=== PATIENT | female | born 1960 | race Caucasian/White ===

== ENCOUNTER 2018-08-11 01:24 | Emergency (ER) | payer OTHER ==
[2018-08-11] MEDS ORDERED: FLUORESCEIN SODIUM 0.6 MG/WRAP ONE (02:08)
[2018-08-11] MEDS ORDERED: VALACYCLOVIR 500 MG TAB ONE (02:17)
[2018-08-11] MEDS ORDERED: TETRACAINE HCL 0.5% 2ML OPTH ONE (02:18)
--- NOTE | 2018-08-11 02:33 | EDPHYS ---
Physician Documentation [facility] Name: Audra Ortiz Age: 57 yrs Sex: Female : 1960 Arrival Date: 08/11/2018 Time: 01:26 Bed 14 Private MD: ED Physician Cameron Ortega HPI: 08/11 02:01 This 57 yrs old Female presents to ER via Ambulatory with complaints of pm1 Facial problem/rash. 02:01 The patient's rash thought to be caused by an unknown cause. The rash is located on the pm1 forehead. The rash can be described as raised. Onset: The symptoms/episode began/occurred 3 day(s) ago. Associated signs and symptoms: Pertinent positives: burning sensation, itching, Pain Pertinent negatives: swelling of lips, swelling of throat, swelling of tongue. Treatment given at home: OTC lotion/cream steroid lotion/cream, antifungal OTC. The patient has not experienced similar symptoms in the past. The patient has not recently seen a physician. 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 - Social history:: Smoking status: Patient/guardian denies using tobacco, never smoked. - Ebola Screening: : No symptoms or risks identified at this time. ROS: 02:01 Constitutional: Negative for fever, chills, and weight loss, Eyes: Negative for injury, pm1 pain, redness, and discharge, ENT: Negative for injury, pain, and discharge, Neck: Negative for injury, pain, and swelling, Cardiovascular: Negative for chest pain, palpitations, and edema, Respiratory: Negative for shortness of breath, cough, wheezing, and pleuritic chest pain, Abdomen/GI: Negative for abdominal pain, nausea, vomiting, diarrhea, and constipation, Back: Negative for injury and pain, MS/Extremity: Negative for injury and deformity. 02:01 Neuro: Negative for headache, weakness, numbness, tingling, and seizure. 02:01 Skin: Positive for rash, of the left side of forehead. Exam: 02:01 Constitutional: This is a well developed, well nourished patient who is awake, alert, pm1 and in no acute distress. Head/Face: Normocephalic, atraumatic. Eyes: Pupils equal round and reactive to light, extra-ocular motions intact. Lids and lashes normal. Conjunctiva and sclera are non-icteric and not injected. Cornea within normal limits. Periorbital areas with no swelling, redness, or edema. ENT: Nares patent. No nasal discharge, no septal abnormalities noted. Tympanic membranes are normal and external auditory canals are clear. Oropharynx with no redness, swelling, or masses, exudates, or evidence of obstruction, uvula midline. Mucous membranes moist. Neck: Trachea midline, no thyromegaly or masses palpated, and no cervical lymphadenopathy. Supple, full range of motion without nuchal rigidity, or vertebral point tenderness. No Meningismus. Chest/axilla: Normal chest wall appearance and motion. Nontender with no deformity. No lesions are appreciated. Cardiovascular: Regular rate and rhythm with a normal S1 and S2. No gallops, murmurs, or rubs. Normal PMI, no JVD. No pulse deficits. Respiratory: Lungs have equal breath sounds bilaterally, clear to auscultation and percussion. No rales, rhonchi or wheezes noted. No increased work of breathing, no retractions or nasal flaring. Abdomen/GI: Soft, non-tender, with normal bowel sounds. No distension or tympany. No guarding or rebound. No evidence of tenderness throughout. Back: No spinal tenderness. No costovertebral tenderness. Full range of motion. 02:01 Skin: Appearance: normal except for affected area, consistent with zoster, on the forehead left side. 02:31 Eyes: Corneas: foreign body, is not appreciated, a fluorescein strip employed to pm1 appreciate the findings, No dye uptake present on right eye. No dendrites present on right eye. Vital Signs: 01:30 BP 170 / 91; Pulse 89; Resp 19 S; Temp 98.4(O); Pulse Ox 95% on R/A; Weight 59.42 kg; cc3 Height 5 ft. 2 in. (157.48 cm); Pain 0/10; 02:30 BP 162 / 78; Pulse 88; Resp 18 S; Pulse Ox 95% on R/A; cc3 01:30 Body Mass Index 23.96 (59.42 kg, 157.48 cm) cc3 MDM: 01:57 Patient medically screened. pm1 02:01 Data reviewed: vital signs. Data interpreted: Pulse oximetry: on room air is 95 %. pm1 Interpretation: normal. Counseling: I had a detailed discussion with the patient and/or guardian regarding: the historical points, exam findings, and any diagnostic results supporting the discharge/admit diagnosis, the need for outpatient follow up, an opthalmologist, to return to the emergency department if symptoms worsen or persist or if there are any questions or concerns that arise at home. 08/11 02:01 Order name: Visual Acuity; Complete Time: 02:45 pm1 08/11 02:01 Order name: Eye Tray; Complete Time: 02:45 pm1 08/11 02:01 Order name: Fluoresene Opth strip; Complete Time: 02:45 pm1 Administered Medications: 02:10 Drug: Tetracaine Drops 0.5 % 1 drops Route: Ophthalmic; Site: left eye; cc3 02:30 Follow up: Response: No adverse reaction cc3 02:10 Drug: Valtrex 1000 mg Route: PO; cc3 02:30 Follow up: Response: No adverse reaction cc3 Disposition: 08/11/18 02:32 Discharged to Home. Impression: Zoster [herpes zoster]. - Condition is Stable. - Discharge Instructions: Shingles. - Prescriptions for Valtrex 1 g Oral Tablet - take 1 tablet by ORAL route every 8 hours for 7 days; 21 tablet. Tylenol- Codeine #3 300-30 mg Oral Tablet - take 2 tablets by ORAL route every 6 hours As needed; 20 tablet. - Medication Reconciliation Form, Thank You Letter, Antibiotic Education, Prescription Opioid Use form. - Follow up: Emergency Department; When: As needed; Reason: Worsening of condition. Follow up: Zita Balderas; When: 2 - 3 days; Reason: Recheck today's complaints, Continuance of care, Re-evaluation by your physician. Follow up: Romero Chanel; When: 2 - 3 days; Reason: Recheck today's complaints, Continuance of care, Re-evaluation by your physician. Follow up: Private Physician; When: 2 - 3 days; Reason: Recheck today's complaints, Continuance of care, Re-evaluation by your physician. - Problem is new. - Symptoms have improved. Addendum: 08/12/2018 18:53 Co-signature as Attending Physician, Cameron Ortega MD. g s Signatures: Esteban Ovalle, GOLF COURSE EQUIPMENT OPERATOR GOLF COURSE EQUIPMENT OPERATOR pm1 Cameron Ortega MD MD Amy Holland cc3 Corrections: (The following items were deleted from the chart) 08/11 02:33 02:32 08/11/2018 02:32 Discharged to Home. Impression: Zoster [herpes zoster]. pm1 Condition is Stable. Discharge Instructions: Shingles. Prescriptions for Valtrex 1 g Oral Tablet - take 1 tablet by ORAL route every 8 hours for 7 days; 21 tablet, Tylenol-Codeine #3 300-30 mg Oral Tablet - take 2 tablets by ORAL route every 6 hours As needed; 20 tablet. and Forms are Medication Reconciliation Form, Thank You Letter, Antibiotic Education, Prescription Opioid Use. Follow up: Emergency Department; When: As needed; Reason: Worsening of condition. Follow up: Zita Balderas; When: 2 - 3 days; Reason: Recheck today's complaints, Continuance of care, Re-evaluation by your physician. Follow up: Romero Chanel; When: 2 - 3 days; Reason: Recheck today's complaints, Continuance of care, Re-evaluation by your physician. Problem is new. Symptoms have improved. pm1 02:43 02:33 08/11/2018 02:32 Discharged to Home. Impression: Zoster [herpes zoster]. cc3 Condition is Stable. Discharge Instructions: Shingles. Prescriptions for Valtrex 1 g Oral Tablet - take 1 tablet by ORAL route every 8 hours for 7 days; 21 tablet, Tylenol-Codeine #3 300-30 mg Oral Tablet - take 2 tablets by ORAL route every 6 hours As needed; 20 tablet. and Forms are Medication Reconciliation Form, Thank You Letter, Antibiotic Education, Prescription Opioid Use. Follow up: Emergency Department; When: As needed; Reason: Worsening of condition. Follow up: Zita Balderas; When: 2 - 3 days; Reason: Recheck today's complaints, Continuance of care, Re-evaluation by your physician. Follow up: Romero hCanel; When: 2 - 3 days; Reason: Recheck today's complaints, Continuance of care, Re-evaluation by your physician. Follow up: Private Physician; When: 2 - 3 days; Reason: Recheck today's complaints, Continuance of care, Re-evaluation by your physician. Problem is new. Symptoms have improved. pm1
--- NOTE | 2018-08-11 02:33 | ER ---
Nurse's Notes [facility] Name: Audra Ortiz Age: 57 yrs Sex: Female : 1960 Arrival Date: 08/11/2018 Time: : Bed 14 Private MD: Diagnosis: Zoster [herpes zoster] Presentation: 08/11 01:30 Presenting complaint: Patient states: facial rash that started 4 days ago then cc3 scattered to patient's forehead after she self-treated it with an OTC topical ointment for athlete's foot and self-medicated with some regular antibiotic as she verbalized. Transition of care: patient was not received from another setting of care. Onset of symptoms was August 07, 2018. Risk Assessment: Do you want to hurt yourself or someone else? Patient reports no desire to harm self or others. Initial Sepsis Screen: Does the patient meet any 2 criteria? No. Patient's initial sepsis screen is negative. Does the patient have a suspected source of infection? No. Patient's initial sepsis screen is negative. Care prior to arrival: None. 01:30 Method Of Arrival: Ambulatory cc3 01:30 Acuity: LEOBARDO 4 cc3 Triage Assessment: 01:30 General: Appears in no apparent distress. comfortable, Behavior is calm, cooperative, cc3 appropriate for age. Pain: Denies pain. EENT: Lid(s) noted a rash on the left upper eyelid. Neuro: Level of Consciousness is awake, alert, obeys commands, Oriented to person, place, time, situation, Appropriate for age. Cardiovascular: Denies chest pain. Respiratory: Airway is patent Respiratory effort is even, unlabored, Respiratory pattern is regular, symmetrical. GI: Abdomen is flat, non-distended. : No signs and/or symptoms were reported regarding the genitourinary system. Derm: Reports rash on the face that started last Sunday then scattered now to her forehead. Musculoskeletal: Circulation, motion, and sensation intact. Range of motion: intact in all extremities. 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 - Social history:: Smoking status: Patient/guardian denies using tobacco, never smoked. - Ebola Screening: : No symptoms or risks identified at this time. Screenin:30 Abuse screen: Denies threats or abuse. Denies injuries from another. Nutritional cc3 screening: No deficits noted. Tuberculosis screening: No symptoms or risk factors identified. Fall Risk Ambulatory Aid- None/Bed Rest/Nurse Assist (0 pts). Gait- Normal/Bed Rest/Wheelchair (0 pts) Mental Status- Oriented to own ability (0 pts). Assessment: 02:40 Reassessment: Patient appears in no apparent distress at this time. Patient and/or cc3 family updated on plan of care and expected duration. Pain level reassessed. Patient is alert, oriented x 3, equal unlabored respirations, skin warm/dry/pink. ISAAC Orellana discharged the patient home with prescription given. No IV cannula in situ. Patient left ER vitally stable and ambulatory. Vital Signs: 01:30 BP 170 / 91; Pulse 89; Resp 19 S; Temp 98.4(O); Pulse Ox 95% on R/A; Weight 59.42 kg; cc3 Height 5 ft. 2 in. (157.48 cm); Pain 0/10; 02:30 BP 162 / 78; Pulse 88; Resp 18 S; Pulse Ox 95% on R/A; cc3 01:30 Body Mass Index 23.96 (59.42 kg, 157.48 cm) cc3 ED Course: 01:26 Patient arrived in ED. am2 01:30 Arm band placed on right wrist. cc3 01:30 Patient has correct armband on for positive identification. Bed in low position. Call cc3 light in reach. Side rails up X 1. Pulse ox on. NIBP on. 01:47 Esteban Ovalle NP is PHCP. pm1 01:47 Cameron Ortega MD is Attending Physician. pm1 01:50 Amy Holland is Primary Nurse. cc3 01:54 Triage completed. cc3 02:30 Assist provider with eye exam of left eye. using fluorescein stain, Performed by cc3 Esteban Ovalle MOTORCYCLE FABRICATOR Patient tolerated well. Patient did not have IV access during this emergency room visit. 02:32 Zita Balderas MD is Referral Physician. pm1 02:32 Romero Chanel MD is Referral Physician. pm1 Administered Medications: 02:10 Drug: Tetracaine Drops 0.5 % 1 drops Route: Ophthalmic; Site: left eye; cc3 02:30 Follow up: Response: No adverse reaction cc3 02:10 Drug: Valtrex 1000 mg Route: PO; cc3 02:30 Follow up: Response: No adverse reaction cc3 Outcome: 02:32 Discharge ordered by . pm1 02:40 Discharged to home ambulatory. cc3 02:40 Condition: stable 02:40 Discharge instructions given to patient, Instructed on discharge instructions, follow up and referral plans. medication usage, Demonstrated understanding of instructions, follow-up care, medications, Prescriptions given X 2. 02:43 Patient left the ED. cc3 Signatures: Esteban Ovalle NP MOTORCYCLE FABRICATOR pm1 Chika Nunez am2 Amy Holland cc3
== END 2018-08-11 02:43 | disposition home or self-care (01) ==
LOC: ER 01:24
DX: B02.9 Zoster without complications (principal); I10 Essential (primary) hypertension; J44.9 Chronic obstructive pulmonary disease, unspecified
CPT/HCPCS: 99284

== ENCOUNTER 2019-01-12 23:24 | Emergency (ER) | payer OTHER ==
--- NOTE | 2019-01-13 01:31 | ER ---
Nurse's Notes 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 Transition of care: patient was not received from another setting of care. Onset of symptoms was January 09, 2019. Risk Assessment: Do you want to hurt yourself or someone else? Patient reports no desire to harm self or others. Initial Sepsis Screen: Does the patient meet any 2 criteria? No. Patient's initial sepsis screen is negative. Does the patient have a suspected source of infection? No. Patient's initial sepsis screen is negative. Care prior to arrival: None. 00:14 Method Of Arrival: Ambulatory 00:14 Acuity: LEOBARDO 4 bb Triage Assessment: 00:53 General: Appears in no apparent distress. uncomfortable, Behavior is calm, cooperative, cc3 appropriate for age. Pain: Denies pain. EENT: No signs and/or symptoms were reported regarding the EENT system. Neuro: Level of Consciousness is awake, alert, obeys commands, Oriented to person, place, time, situation, Appropriate for age. Cardiovascular: Denies chest pain, Patient's skin is warm and dry. Respiratory: Airway is patent Respiratory effort is even, unlabored, Respiratory pattern is regular, symmetrical. GI: Abdomen is round non-distended. : No signs and/or symptoms were reported regarding the genitourinary system. Derm: blisters all over her bilateral upper extremities, chest, back, and inner thigh areas. Musculoskeletal: Circulation, motion, and sensation intact. Range of motion: intact in all extremities. Historical: - Allergies: 00:17 No Known Allergies; bb - Home Meds: 00:17 albuterol sulfate 1.25 mg/3 mL Inhl nebu 3 mL 3 times per day [Active]; ProAir HFA 90 bb mcg/actuation inhalation HFAA 2 puffs every 4 hours [Active]; Symbicort 80-4.5 mcg/actuation inhalation HFAA 2 puffs 2 times per day [Active]; triamterene-hydrochlorothiazid 37.5-25 mg Oral tab 1 tab once daily [Active]; 00:19 amlodipine oral [Active]; bb - PMHx: 00:17 COPD; Hypertension; bb - PSHx: 00:17 None; bb - Immunization history:: Adult Immunizations up to date. - Social history:: Smoking status: Patient/guardian denies using tobacco. - Ebola Screening: : No symptoms or risks identified at this time. Screenin:53 Abuse screen: Denies threats or abuse. Denies injuries from another. Nutritional cc3 screening: No deficits noted. Tuberculosis screening: No symptoms or risk factors identified. Fall Risk Ambulatory Aid- None/Bed Rest/Nurse Assist (0 pts). Gait- Normal/Bed Rest/Wheelchair (0 pts) Mental Status- Oriented to own ability (0 pts). Assessment: 00:53 General: see triage assessment. cc3 01:20 Reassessment: Patient appears in no apparent distress at this time. Patient and/or cc3 family updated on plan of care and expected duration. Pain level reassessed. Patient is alert, oriented x 3, equal unlabored respirations, skin warm/dry/pink. 02:15 Reassessment: Patient appears in no apparent distress at this time. Patient and/or cc3 family updated on plan of care and expected duration. Pain level reassessed. Patient is alert, oriented x 3, equal unlabored respirations, skin warm/dry/pink. ISAAC Mcmullen discharged the patient home with prescription given. No IV cannula in situ. Patient left ER vitally stable and ambulatory. Vital Signs: 00:17 BP 182 / 85; Pulse 90; Resp 18 S; Temp 98.2(O); Pulse Ox 95% on R/A; Weight 57.61 kg bb (R); Height 5 ft. 2 in. (157.48 cm) (R); Pain 0/10; 02:00 BP 179 / 80; Pulse 84; Resp 18 S; Pulse Ox 95% on R/A; cc3 00:17 Body Mass Index 23.23 (57.61 kg, 157.48 cm) bb ED Course: 01/12 23:26 Patient arrived in ED. am2 23:49 [facility] Sh[facility]-C [facility]. snw 23:49 Cameron Ortega MD is Attending Physician. snw 01/13 00:16 Triage completed. bb 00:17 Arm band placed on Patient placed in waiting room, Patient notified of wait time. bb 00:53 Amy Holland is Primary Nurse. cc3 00:53 Patient has correct armband on for positive identification. Bed in low position. Call cc3 light in reach. Side rails up X 1. Pulse ox on. NIBP on. 02:15 No provider procedures requiring assistance completed. Patient did not have IV access cc3 during this emergency room visit. Administered Medications: 02:00 Drug: predniSONE 40 mg Route: PO; cc3 02:15 Follow up: Response: No adverse reaction cc3 02:00 Drug: Pepcid 20 mg Route: PO; cc3 02:15 Follow up: Response: No adverse reaction cc3 02:00 Drug: Atarax 50 mg Route: PO; cc3 02:15 Follow up: Response: No adverse reaction cc3 Outcome: 01:31 Discharge ordered by . snw 02:15 Discharged to home ambulatory. cc3 02:15 Condition: stable 02:15 Discharge instructions given to patient, Instructed on discharge instructions, follow up and referral plans. medication usage, Demonstrated understanding of instructions, follow-up care, medications, Prescriptions given X 3. 02:20 Patient left the ED. cc3 Signatures: Keim Sharma FNP-C TRENCH DIGGING MACHINE OPERATOR-Csnw Lorena Schroeder RN RN Chika Powers am2 Amy Holland cc3 Corrections: (The following items were deleted from the chart) 04:47 04:47 Response: No adverse reaction cc3 cc3
--- NOTE | 2019-01-13 01:32 | EDPHYS ---
Physician Documentation [facility] Name: Audra Ortiz Age: 58 yrs Sex: Female : 1960 Arrival Date: 01/12/2019 Time: 23:26 Bed 14 Private MD: ED Physician Cameron Ortega HPI: 01/13 01:41 This 58 yrs old Female presents to ER via Ambulatory with complaints of snw Possible Poison Tavia. Historical: - Allergies: 00:17 No Known Allergies; bb - Home Meds: 00:17 albuterol sulfate 1.25 mg/3 mL Inhl nebu 3 mL 3 times per day [Active]; ProAir HFA 90 bb mcg/actuation inhalation HFAA 2 puffs every 4 hours [Active]; Symbicort 80-4.5 mcg/actuation inhalation HFAA 2 puffs 2 times per day [Active]; triamterene-hydrochlorothiazid 37.5-25 mg Oral tab 1 tab once daily [Active]; 00:19 amlodipine oral [Active]; bb - PMHx: 00:17 COPD; Hypertension; bb - PSHx: 00:17 None; bb - Immunization history:: Adult Immunizations up to date. - Social history:: Smoking status: Patient/guardian denies using tobacco. - Ebola Screening: : No symptoms or risks identified at this time. ROS: 01:37 Constitutional: Negative for fever, chills, and weight loss, Eyes: Negative for injury, snw pain, redness, and discharge, ENT: Negative for injury, pain, and discharge, Neck: Negative for injury, pain, and swelling, Cardiovascular: Negative for chest pain, palpitations, and edema, Respiratory: Negative for shortness of breath, cough, wheezing, and pleuritic chest pain, Abdomen/GI: Negative for abdominal pain, nausea, vomiting, diarrhea, and constipation, Back: Negative for injury and pain, : Negative for injury, bleeding, discharge, and swelling, MS/Extremity: Negative for injury and deformity, Neuro: Negative for headache, weakness, numbness, tingling, and seizure, Psych: Negative for depression, anxiety, suicide ideation, homicidal ideation, and hallucinations. 01:37 Skin: Positive for rash, itching, burning. Exam: 01:36 Constitutional: This is a well developed, well nourished patient who is awake, alert, snw and in no acute distress. Head/Face: Normocephalic, atraumatic. Eyes: Pupils equal round and reactive to light, extra-ocular motions intact. Lids and lashes normal. Conjunctiva and sclera are non-icteric and not injected. Cornea within normal limits. Periorbital areas with no swelling, redness, or edema. ENT: Nares patent. No nasal discharge, no septal abnormalities noted. Tympanic membranes are normal and external auditory canals are clear. Oropharynx with no redness, swelling, or masses, exudates, or evidence of obstruction, uvula midline. Mucous membranes moist. Neck: Trachea midline, no thyromegaly or masses palpated, and no cervical lymphadenopathy. Supple, full range of motion without nuchal rigidity, or vertebral point tenderness. No Meningismus. Chest/axilla: Normal chest wall appearance and motion. Nontender with no deformity. No lesions are appreciated. Cardiovascular: Regular rate and rhythm with a normal S1 and S2. No gallops, murmurs, or rubs. Normal PMI, no JVD. No pulse deficits. Respiratory: Lungs have equal breath sounds bilaterally, clear to auscultation and percussion. No rales, rhonchi or wheezes noted. No increased work of breathing, no retractions or nasal flaring. Abdomen/GI: Soft, non-tender, with normal bowel sounds. No distension or tympany. No guarding or rebound. No evidence of tenderness throughout. Back: No spinal tenderness. No costovertebral tenderness. Full range of motion. MS/ Extremity: Pulses equal, no cyanosis. Neurovascular intact. Full, normal range of motion. Neuro: Awake and alert, GCS 15, oriented to person, place, time, and situation. Cranial nerves II-XII grossly intact. Motor strength 5/5 in all extremities. Sensory grossly intact. Cerebellar exam normal. Normal gait. Psych: Awake, alert, with orientation to person, place and time. Behavior, mood, and affect are within normal limits. 01:36 Skin: Appearance: Color: normal in color, contact dermatitis, with bullae to bilateral arms, chest. Vital Signs: 00:17 BP 182 / 85; Pulse 90; Resp 18 S; Temp 98.2(O); Pulse Ox 95% on R/A; Weight 57.61 kg bb (R); Height 5 ft. 2 in. (157.48 cm) (R); Pain 0/10; 02:00 BP 179 / 80; Pulse 84; Resp 18 S; Pulse Ox 95% on R/A; cc3 00:17 Body Mass Index 23.23 (57.61 kg, 157.48 cm) bb MDM: 01:26 Patient medically screened. snw 01:37 Data reviewed: vital signs, nurses notes. Data interpreted: Pulse oximetry: on room air snw is 95 %. Interpretation: acceptable. Counseling: I had a detailed discussion with the patient and/or guardian regarding: the historical points, exam findings, and any diagnostic results supporting the discharge/admit diagnosis, the need for outpatient follow up, to return to the emergency department if symptoms worsen or persist or if there are any questions or concerns that arise at home. Special discussion: Based on the history and exam findings, there is no indication for further emergent testing or inpatient evaluation. I discussed with the patient/guardian the need to see the industrial hygienist for further evaluation of the symptoms. I discussed with the patient/guardian the need to see the chief of internal medicine for further evaluation of the symptoms. Administered Medications: 02:00 Drug: predniSONE 40 mg Route: PO; cc3 02:15 Follow up: Response: No adverse reaction cc3 02:00 Drug: Pepcid 20 mg Route: PO; cc3 02:15 Follow up: Response: No adverse reaction cc3 02:00 Drug: Atarax 50 mg Route: PO; cc3 02:15 Follow up: Response: No adverse reaction cc3 Disposition: 03:00 Co-signature as Attending Physician, Cameron Ortega MD. Disposition: 19 01:31 Discharged to Home. 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 - Condition is Stable. - Discharge Instructions: Contact Dermatitis. - Prescriptions for Pepcid 20 mg Oral Tablet - take 1 tablet by ORAL route every 12 hours for 10 days; 20 tablet. Zyrtec 10 mg Oral Tablet - take 1 tablet by ORAL route once daily As needed; 20 tablet. Prednisone 20 mg Oral Tablet - take 2 tablet by ORAL route once daily for 5 days; 10 tablet. - Work release form, Medication Reconciliation Form, Thank You Letter, Antibiotic Education, Prescription Opioid Use form. - Follow up: Private Physician; When: 2 - 3 days; Reason: Recheck today's complaints, Continuance of care, Re-evaluation by your physician. Follow up: Emergency Department; When: As needed; Reason: Worsening of condition. Signatures: Kemi Sharma, SHANTAL-C PERPETUAL INVENTORY CLERK-Csnw Lorena Schroeder RN RN Cameron Foster MD MD gs Cordel, Charlene cc3 Corrections: (The following items were deleted from the chart) 02:20 01:31 01/13/2019 01:31 Discharged to Home. 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 Condition is Stable. Forms are Medication Reconciliation Form, Thank You Letter, Antibiotic Education, Prescription Opioid Use. Follow up: Private Physician; When: 2 - 3 days; Reason: Recheck today's complaints, Continuance of care, Re-evaluation by your physician. Follow up: Emergency Department; When: As needed; Reason: Worsening of condition. snw
[2019-01-13] MEDS ORDERED: predniSONE 20 MG TAB ONE (02:00)
[2019-01-13] MEDS ORDERED: FAMOTIDINE 20 MG TAB ONE (02:01)
[2019-01-13] MEDS ORDERED: hydrOXYzine HCl 25 MG TAB ONE (02:01)
== END 2019-01-13 02:20 | disposition home or self-care (01) ==
LOC: ER 23:24
DX: L24.9 Irritant contact dermatitis, unspecified cause (principal); L14 Bullous disorders in diseases classified elsewhere; I10 Essential (primary) hypertension; J44.9 Chronic obstructive pulmonary disease, unspecified
CPT/HCPCS: 99283; J7512

== ENCOUNTER 2022-05-07 23:44 | Emergency (ER) | payer OTHER ==
--- NOTE | 2022-05-08 00:19 | EDPHYS ---
Physician Documentation [facility] Name: Audra Ortiz Age: 61 yrs Sex: Female : 1960 Arrival Date: 05/07/2022 Time: 23:46 Bed Waiting Private MD: BRENNEN Physician Marlon Gamble HPI: 05/08 00:15 This 61 yrs old Female presents to ER via Ambulatory with complaints of Toothache. kb 00:15 The patient presents with pain, redness, swelling. The problem is located in the upper kb left first molar. Onset: The symptoms/episode began/occurred 4 day(s) ago. Duration: The symptoms are continuous. Modifying factors: The symptoms are alleviated by nothing, the symptoms are aggravated by nothing. Associated signs and symptoms: Pertinent positives: pain, redness in area, swelling. Severity of symptoms: At their worst the symptoms were moderate, in the emergency department the symptoms are unchanged. The patient has experienced similar episodes in the past, several times. The patient has not recently seen a physician. Pt reports dental pain that started on . States "I have bad teeth and I know I need to see a dentist. I came in to get antibiotics because I know it is an infection.". Historical: - Allergies: 00:11 No Known Allergies; jb4 - Home Meds: 00:11 triamterene-hydrochlorothiazid 37.5-25 mg Oral tab 1 tab once daily [Active]; Symbicort jb4 80-4.5 mcg/actuation inhalation HFAA 2 puffs 2 times per day [Active]; ProAir HFA 90 mcg/actuation inhalation HFAA 2 puffs every 4 hours [Active]; amlodipine oral [Active]; albuterol sulfate 1.25 mg/3 mL Inhl nebu 3 mL 3 times per day [Active]; - PMHx: 00:11 COPD; Hypertension; jb4 - PSHx: 00:11 None; jb4 - Immunization history:: Adult Immunizations up to date. - Social history:: Smoking status: Patient denies any tobacco usage or history of. ROS: 00:16 Constitutional: Negative for fever, chills, and weight loss. kb 00:16 ENT: Positive for dental pain. 00:16 All other systems are negative. Exam: 00:16 Constitutional: This is a well developed, well nourished patient who is awake, alert, kb and in no acute distress. Head/Face: Normocephalic, atraumatic. Respiratory: Respirations even and unlabored. No increased work of breathing. Talking in full sentences Skin: Warm, dry with normal turgor. Normal color. MS/ Extremity: Pulses equal, no cyanosis. Neurovascular intact. Full, normal range of motion. Neuro: Awake and alert, GCS 15, oriented to person, place, time, and situation. Moves all extremities. Normal gait. Psych: Awake, alert, with orientation to person, place and time. Behavior, mood, and affect are within normal limits. 00:16 ENT: Dental exam: gum swelling, that is mild, specifically in the upper left first molar, pain. Vital Signs: 00:09 BP 174 / 70; Pulse 91; Resp 16; Temp 98.7(TE); Pulse Ox 95% on R/A; Weight 58.97 kg jb4 (R); Height 5 ft. 2 in. (157.48 cm) (R); Pain 9/10; 00:09 Body Mass Index 23.78 (58.97 kg, 157.48 cm) jb4 MDM: 00:13 Patient medically screened. kb 00:16 Data reviewed: vital signs, nurses notes. Data interpreted: Pulse oximetry: on room air kb is 95 %. Interpretation: normal. Counseling: I had a detailed discussion with the patient and/or guardian regarding: the historical points, exam findings, and any diagnostic results supporting the discharge/admit diagnosis, the need for outpatient follow up, a dentist, to return to the emergency department if symptoms worsen or persist or if there are any questions or concerns that arise at home. Administered Medications: 00:27 Drug: Augmentin (Amoxicillin-Clavulanate) 875 mg Route: PO; jb4 00:27 Follow up: Response: Medication administered at discharge. jb4 00:27 Not Given (Patient Refused): Ketorolac 30 mg IM once jb4 Disposition Summary: 05/08/22 00:18 Discharge Ordered Location: Home kb Condition: Stable kb Diagnosis - Other specified disorders of teeth and supporting structures kb Followup: kb - With: Private Physician - When: 2 - 3 days - Reason: Recheck today's complaints, Continuance of care, Re-evaluation by your physician Followup: kb - With: Emergency Department - When: As needed - Reason: Worsening of condition Discharge Instructions: - Discharge Summary Sheet kb - Dental Pain, [id number] kb - Dental Abscess, [id number] kb Forms: - Medication Reconciliation Form kb - Thank You Letter kb - Antibiotic Education kb - Prescription Opioid Use kb Prescriptions: - Augmentin 875-125 mg Oral Tablet - take 1 tablet by ORAL route every 12 hours for 10 days; 20 tablet; Refills: 0, kb Product Selection Permitted - Diclofenac Sodium 75 mg Oral tablet,delayed release (DR/EC) - take 1 tablet by ORAL route 2 times per day As needed; 30 tablet; Refills: 0, kb Product Selection Permitted Signatures: Elizabeth Moralez, SHANTAL-C TRANSPORTATION DEPARTMENT SUPERVISOR-Tanvirb Shorty Rosales, RN RN jb4
--- NOTE | 2022-05-08 00:19 | ER ---
Nurse's Notes [facility] Name: Audra Ortiz Age: 61 yrs Sex: Female : 1960 Arrival Date: 05/07/2022 Time: 23:46 Bed Waiting Private MD: Diagnosis: Other specified disorders of teeth and supporting structures Presentation: 05/08 00:09 Chief complaint: Patient states: I have had a tooth infection since . I have jb4 been trying to treat the pain with tylenol. I just need some antibiotics. Coronavirus screen: At this time, the client does not indicate any symptoms associated with coronavirus-19. Ebola Screen: No symptoms or risks identified at this time. Initial Sepsis Screen: Does the patient meet any 2 criteria? No. Patient's initial sepsis screen is negative. Does the patient have a suspected source of infection? No. Patient's initial sepsis screen is negative. Risk Assessment: Do you want to hurt yourself or someone else? Patient reports no desire to harm self or others. Onset of symptoms was May 08, 2022. Transition of care: patient was not received from another setting of care. 00:09 Method Of Arrival: Ambulatory jb4 00:09 Acuity: LEOBARDO 5 jb4 Historical: - Allergies: 00:11 No Known Allergies; jb4 - Home Meds: 00:11 triamterene-hydrochlorothiazid 37.5-25 mg Oral tab 1 tab once daily [Active]; Symbicort jb4 80-4.5 mcg/actuation inhalation HFAA 2 puffs 2 times per day [Active]; ProAir HFA 90 mcg/actuation inhalation HFAA 2 puffs every 4 hours [Active]; amlodipine oral [Active]; albuterol sulfate 1.25 mg/3 mL Inhl nebu 3 mL 3 times per day [Active]; - PMHx: 00:11 COPD; Hypertension; jb4 - PSHx: 00:11 None; jb4 - Immunization history:: Adult Immunizations up to date. - Social history:: Smoking status: Patient denies any tobacco usage or history of. Screenin:26 Abuse screen: Denies threats or abuse. Nutritional screening: No deficits noted. jb4 Tuberculosis screening: No symptoms or risk factors identified. Fall Risk None identified. Assessment: 00:26 General: Appears in no apparent distress. comfortable, Behavior is calm, cooperative, jb4 appropriate for age. Pain: Complains of pain in mouth Pain does not radiate. Pain currently is 9 out of 10 on a pain scale. Neuro: Level of Consciousness is awake, alert, obeys commands, Oriented to person, place, time, situation. Cardiovascular: Patient's skin is warm and dry. Respiratory: Airway is patent Respiratory effort is even, unlabored, Respiratory pattern is regular, symmetrical. EENT: Poor dentition noted. Derm: Skin is intact, Skin is pink, warm \T\ dry. Musculoskeletal: Circulation, motion, and sensation intact. Range of motion: intact in all extremities. Vital Signs: 00:09 BP 174 / 70; Pulse 91; Resp 16; Temp 98.7(TE); Pulse Ox 95% on R/A; Weight 58.97 kg jb4 (R); Height 5 ft. 2 in. (157.48 cm) (R); Pain 07/08; 00:09 Body Mass Index 23.78 (58.97 kg, 157.48 cm) jb4 ED Course: 05/07 23:46 Patient arrived in ED. bp1 05/08 00:11 Triage completed. jb4 00:11 Arm band placed on right wrist. jb4 00:13 Elizabeth Moralez FNP-C is [facility]. kb 00:13 Marlon Gamble MD is Attending Physician. kb 00:26 Patient has correct armband on for positive identification. Bed in low position. Call jb4 light in reach. Side rails up X 1. 00:26 No provider procedures requiring assistance completed. Patient did not have IV access jb4 during this emergency room visit. Administered Medications: 00:27 Drug: Augmentin (Amoxicillin-Clavulanate) 875 mg Route: PO; jb4 00:27 Follow up: Response: Medication administered at discharge. jb4 00:27 Not Given (Patient Refused): Ketorolac 30 mg IM once jb4 Medication: 00:26 VIS not applicable for this client. jb4 Outcome: 00:18 Discharge ordered by . kb 00:26 Discharged to home ambulatory. jb4 00:26 Condition: stable 00:26 Discharge instructions given to patient, Instructed on discharge instructions, follow up and referral plans. medication usage, Demonstrated understanding of instructions, follow-up care, medications, Prescriptions given X 2. 00:28 Patient left the ED. jb4 Signatures: Elizabeth Moralez, ISABELLA BUDGET ASSISTANT-CkShorty Saul, RN RN jb4 Joanie Ackerman [facility]
[2022-05-08] MEDS ORDERED: AMOX/K CLAV 875 MG TAB ONE (00:28)
[2022-05-08] MEDS ORDERED: KETOROLAC 30 MG/ML INJ ONE (00:28)
[2022-05-08 01:12] VITALS: BP 174/70; TEMP 98.7; O2SAT 95
== END 2022-05-08 00:28 | disposition home or self-care (01) ==
LOC: ER 23:44
DX: K08.89 Other specified disorders of teeth and supporting structures (principal); I10 Essential (primary) hypertension; J44.9 Chronic obstructive pulmonary disease, unspecified
CPT/HCPCS: 99283